=== PATIENT | male | born 1995 | race Caucasian/White ===

== ENCOUNTER 2020-12-10 02:19 | Emergency (ER) | payer SELFPAY ==
[~2020-12-10] VITALS: Ht 180.3 cm; Wt 65.8 kg
--- NOTE | 2020-12-10 02:42 | NUR ---
BIB SELF C/O WEAKNESS DIZZINESS AND PALPITATIONS SINCE MIDNIGHT AFTER GETTING OFF WORK. STATES OCCASION SHARP PAIN TO LEFT EPIGASTRIC REGION, BUT DENIES PAIN AT THIS TIME. DENIES NASUEA, VOMITTING, SOB, AND C/P. VITALS IGNS STABLE MD WAS AT BEDSIDE FOR EVAL.
[2020-12-10 02:58] LABS: BASOPHILS # (AUTO) 0.1 K/uL (0.0-0.2); BASOPHILS % (AUTO) 0.6 % (0.0-2.0); EOSINOPHILS % (AUTO) 0.6 % (0.0-6.0); HEMATOCRIT 42 % (39-51); HEMOGLOBIN 14.1 g/dL (13.5-17.5); LYMPHOCYTES # (AUTO) 1.1 K/uL (0.8-4.8); MEAN CORPUSCULAR HGB CONC 34 g/dl (31.0-36.0); MEAN CORPUSCULAR VOLUME 89 fL (80-96); MONOCYTES # (AUTO) 0.6 K/uL (0.1-1.30); NEUTROPHILS # (AUTO) 8.9 K/uL (1.8-8.9); NEUTROPHILS % (AUTO) 82.8 % (43.0-81.0); PLATELET COUNT (AUTO) 194 K/uL (150-450); RED BLOOD CELL COUNT(AUTO) 4.75 MIL/uL (4.5-6.0); WHITE BLOOD COUNT (AUTO) 10.7 K/uL (4.3-11.0)
[2020-12-10 03:20] LABS: ALANINE AMINOTRANSFERASE 20 U/L (12-78); ALBUMIN 4.5 g/dL (3.4-5.0); ALKALINE PHOSPHATASE 48 U/L (46-116); ASPARTATE AMINOTRANSFERASE 17 U/L (15-37); BILIRUBIN,DIRECT 0.2 mg/dL (0.0-0.2); BILIRUBIN,TOTAL 0.7 mg/dL (0.2-1.0); CALCIUM, SERUM 8.3 mg/dL (8.5-10.1); CARBON DIOXIDE 29 mmol/L (21-32); CHLORIDE 101 mmol/L (98-107); CREATININE 1.2 mg/dL (0.6-1.3); GLUCOSE 108 mg/dL (74-106); POTASSIUM 3.5 mmol/L (3.5-5.1); SODIUM SERUM 138 mmol/L (136-145); THYROID STIMULATING HORMONE 0.751 uIU/mL (0.358-3.74); TOTAL PROTEIN, SERUM 7.5 g/dL (6.4-8.2); UREA NITROGEN, BLOOD 18 mg/dL (7-18)
[2020-12-10 03:22] LABS: ACETAMINOPHEN < 2 ug/ml (10-30)
[2020-12-10 03:28] LABS: BILIRUBIN,URINE Negative (NEGATIVE); COLOR,URINE LIGHT YELLOW (YELLOW); LEUKOCYTE ESTERASE ,URINE Negative (NEGATIVE); NITRITE, URINE Negative (NEGATIVE); PH,URINE 6.5 (5.0-8.0); PROTEIN,URINE Negative (NEGATIVE); UGLUCOSE Negative (NEGATIVE); UROBILINOGEN,URINE 0.2 EU/dL (0.2)
[2020-12-10 03:31] LABS: ALCOHOL, BLOOD < 3 mg/dL (0-0); SERUM AMMONIA 18 umol/L (11-32)
[2020-12-10] MEDS ORDERED: IOHEXOL-350 100 ML VIAL IV ONE (03:41)
[2020-12-10] MEDS ORDERED: IV NS 0.9% 250 ML IV ONE (03:42)
[2020-12-10] MEDS ORDERED: CT SWABBABLE VALVE TRANS SET 1 EA INFUS.SET MC ONE (03:42)
--- NOTE | 2020-12-10 03:54 | NUR ---
PT BACK TO ED BED [address]
--- NOTE | 2020-12-10 04:38 | NUR ---
CUTTER TENDER AT BEDSIDE FOR REPEAT TROP.
[2020-12-10] MEDS ORDERED: KETOROLAC TROMETHAMINE INJ 30 MG/ML VIAL ONE (05:16)
[2020-12-10] MEDS: KETOROLAC TROMETHAMINE INJ 30 MG/ML VIAL IV ONE (05:20)
[2020-12-10] MEDS ORDERED: IBUP-1957 PO (05:26)
--- NOTE | 2020-12-10 05:46 | NUR ---
Patient discharged to home in stable condition. Written and verbal after care instructions given. Patient verbalizes understanding of instruction. RX given
[2020-12-10 05:47] VITALS: BP 133/72
== END 2020-12-10 05:49 | disposition home or self-care (01) ==
LOC: ER 02:23
DX: I31.9 Disease of pericardium, unspecified (principal); R00.2 Palpitations; Z79.899 Other long term (current) drug therapy
CPT/HCPCS: 36415; 71045; 71275; 80048; 80076; 80143; 80307; 80320; 81003; 82140; 84439; 84443; 84484 ×2; 85025; 85730; 93005 ×2; 96374; 99285; J1885; J7050; Q9967; G0480